=== PATIENT | male | born 1990 ===

== ENCOUNTER 2021-09-03 02:44 | Emergency (ER) | payer SELFPAY ==
[2021-09-03] MEDS ORDERED: ZIPRASIDONE MESYLATE 20 MG VIAL IM PRN (18:29)
--- NOTE | 2021-09-03 19:32 | Emergency Department Report ---
ED Psych HPI - General Chief Complaint: Medical Clearance Stated Complaint: MEDICAL CLEARANCE/DRUG REHAB Time Seen by Provider: 09/03/21 18:29 Source: patient Mode of arrival: Ambulatory - History of Present Illness Initial Comments: Patient is a 31-year-old male presenting to ED with request for rehabilitation placement. States he uses heroin, Xanax and methamphetamine. Denies any HI or SI. No hallucinations. - Related Data Allergies Allergy/AdvReac Type Severity Reaction Status Date / Time No Known Allergies Allergy Verified 09/03/21 04:04 ED Review of Systems ROS: Stated complaint: MEDICAL CLEARANCE/DRUG REHAB Other details as noted in HPI Constitutional: denies: chills, fever Respiratory: denies: cough, shortness of breath, wheezing Cardiovascular: denies: chest pain, palpitations Gastrointestinal: denies: abdominal pain, nausea, diarrhea Genitourinary: denies: urgency, dysuria Musculoskeletal: denies: back pain, joint swelling, arthralgia Skin: denies: rash, lesions Neurological: other (Reports restless legs) Psychiatric: denies: anxiety, depression ED Past Medical Hx - Past Medical History Previous Medical History?: No - Surgical History Past Surgical History?: No - Social History Smoking Status: Never Smoker Substance Use Type: None ED Physical Exam - General Limitations: No Limitations General appearance: alert, in no apparent distress - Head Head exam: Present: atraumatic, normocephalic - Neck Neck exam: Present: normal inspection - Respiratory Respiratory exam: Present: normal lung sounds bilaterally. Absent: respiratory distress - Cardiovascular Cardiovascular Exam: Present: regular rate, normal rhythm. Absent: systolic murmur, diastolic murmur, rubs, gallop - GI/Abdominal GI/Abdominal exam: Present: soft, normal bowel sounds - Rectal Rectal exam: Present: deferred - Extremities Exam Extremities exam: Present: normal inspection - Back Exam Back exam: Present: normal inspection - Neurological Exam Neurological exam: Present: alert, oriented X3 - Psychiatric Psychiatric exam: Present: normal affect, normal mood - Skin Skin exam: Present: warm, dry, intact, normal color. Absent: rash ED Course Vital Signs 09/03/21 09/03/21 04:02 20:15 Temperature 98.3 F 98.4 F Pulse Rate 112 H 97 H Respiratory 18 18 Rate Blood Pressure 129/86 138/89 [Left] O2 Sat by Pulse 100 100 Oximetry ED Medical Decision Making - Lab Data Result diagrams: 09/03/21 19:08 09/03/21 19:08 - Medical Decision Making Labs grossly unremarkable. Patient medically cleared. Awaiting mental health assessment. Critical care attestation.: If time is entered above; I have spent that time in minutes in the direct care of this critically ill patient, excluding procedure time. ED Disposition Clinical Impression: Encounter for drug rehabilitation Disposition: 30 STILL A PATIENT Is pt being admited?: No Condition: Stable
[2021-09-03 19:46] LABS: Hematocrit 41.4 % (35.5-45.6); Hemoglobin 13.5 gm/dl (11.8-15.2); Mean Corpuscular HGB Conc 33 % (32-34); Mean Corpuscular Volume 87 fl (84-94); Platelet Count 390 K/mm3 (140-440); Red Blood Count 4.77 M/mm3 (3.65-5.03)
[2021-09-03 19:51] LABS: Lymphocytes % (Auto) 27.5 % (13.4-35.0); Mean Platelet Volume 8.2 fl (6-12)
[2021-09-03 19:52] LABS: Basophils # (Auto) 0.1 K/mm3 (0.0-0.1); Basophils % (Auto) 0.8 % (0.0-1.8); Eosinophils % (Auto) 0.1 % (0.0-4.3); Lymphocytes # (Auto) 2.7 K/mm3 (1.2-5.4); Monocytes # (Auto) 0.8 K/mm3 (0.0-0.8); Monocytes % (Auto) 8.5 % (0.0-7.3)
[2021-09-03 19:53] LABS: BUN/Creatinine Ratio 10; Blood Urea Nitrogen 9 mg/dL (9-20); Calcium 9.2 mg/dL (8.4-10.2); Hemolysis Index 33
[2021-09-03 20:54] LABS: Bilirubin,Urine NEG (Negative); Blood,Urine NEG (Negative); Color,Urine Yellow (Yellow); Mucus,Urine 2+ /HPF; Urobilinogen,Urine < 2.0 mg/dL (<2.0)
[2021-09-03 21:00] LABS: Amphetamine Screen,Urine PRESUMPTIVE POSITIVE; Benzodiazepines Screen,Urine PRESUMPTIVE POSITIVE; Cannabinoid Screen,Urine PRESUMPTIVE POSITIVE; Cocaine Screen,Urine PRESUMPTIVE POSITIVE; Methadone Screen,Urine PRESUMPTIVE NEGATIVE; Opiate Screen,Urine PRESUMPTIVE NEGATIVE
--- NOTE | 2021-09-04 09:36 | Consultation ---
History of Present Illness - Reason for Consult Consult date: 09/04/21 Reason for consult: mental health evaluation - History of Present Psychiatric Illness The patient is a 31 year old male with history of Polysubstance abuse disorder. In my encounter with the patient, he is calm, alert and oriented x3. he reports daily use of Meth, Heroine, Xanax, and alcohol; states he spends about $300 or more weekly. He reports been at multiple rehab facilities, with longest sobriety as 3 months. The patient denies any current suicidal /homicidal ideation and denies hallucinations. PAST PSYCHIATRIC HISTORY Diagnoses: Polysubstance abuse Suicide attempts or Self-harm behavior: No Prior psychiatric hospitalizations: Yes Substance Abuse history: Meth, Heroine, Xanax, alcohol Previous psychiatric medications tried: Unable to recall Outpatient treatment: Denies PAST MEDICAL HISTORY: None reported Family Psychiatric History: None reported or documented SOCIAL HISTORY Marital Status: Single Living Arrangements: with a friend Employment Status: Unemployed Access to guns/weapons: None report Education: High school History of Abuse: Denies Legal History: None reported REVIEW OF SYSTEMS Constitutional: Negative for weight loss ENT: Negative for stridor Respiratory: Negative for cough or hemoptysis All other systems reviewed and are negative MENTAL STATUS EXAMINATION General Appearance and Behavior: Age appropriate, good hygiene, wearing appropriate clothes, calm and cooperative Cooperation: cooperative Psychomotor Behavior: Psychomotor normal Mood: calm Affect and affective range: congruent with stated mood Thought Process: goal directed Thought Content:reality oriented Speech: Normal rate, volume and rhythm Suicidal Ideation: Denies Homicidal Ideation: Denies Hallucinations: Denies Delusions: None elicited Impulse Control: Impaired Insight and Judgment: Limited insight and judgment Memory: Limited Attention: Limited Orientation: Alert, oriented Assessment and Plan (1)Polysubstance abuse disorder TREATMENT PLAN Sitter: per primary Medical: per primary Disposition: Recommend acute psychiatric inpatient treatment. [facility] will p rovide patient with psychiatric outpatient resources. Will sign off. Thanks Medications and Allergies Allergies Allergy/AdvReac Type Severity Reaction Status Date / Time No Known Allergies Allergy Verified 09/03/21 04:04 Active Meds: Active Medications Ziprasidone (Ziprasidone Mesylate 20 Mg Vial) 10 mg IM Q2H PRN PRN Reason: Agitation Last Admin: 09/03/21 18:43 Dose: 10 mg Mental Status Exam - Vital signs Last Vital Signs Temp 99.1 F 09/04/21 02:05 Pulse 86 09/04/21 02:05 Resp 16 09/04/21 02:05 BP 121/81 09/04/21 02:05 Pulse Ox 98 09/04/21 02:05 Results Result Diagrams: 09/03/21 19:08 09/03/21 19:08 Abnormal lab results 09/03/21 09/03/21 09/03/21 Range/Units 19:08 19:08 19:08 [place]ster % (Auto) 8.5 H (0.0-7.3) % Potassium 3.3 L (3.6-5.0) mmol/L Carbon Dioxide 19 L (22-30) mmol/L Urine WBC (Auto) (0.0-6.0) /HPF Acetaminophen 8.6 L (10.0-30.0) ug/mL 09/03/21 Range/Units 20:17 Brewster % (Auto) (0.0-7.3) % Potassium (3.6-5.0) mmol/L Carbon Dioxide (22-30) mmol/L Urine WBC (Auto) 8.0 H (0.0-6.0) /HPF Acetaminophen (10.0-30.0) ug/mL All other labs normal.
--- NOTE | 2021-09-04 11:30 | Event Note ---
Date: 09/04/21 vss , no events overnight , assessed by psych , awaiting transfer to psych facility
[2021-09-04] MEDS ORDERED: KETOROLAC 60 MG/2 ML INJ IM ONE (13:25)
[2021-09-04 16:12] VITALS: BP 141/68
== END 2021-09-04 16:12 | disposition home or self-care (01) ==
LOC: ED 02:44
DX: Z71.51 Drug abuse counseling and surveillance of drug abuser (principal); Z79.899 Other long term (current) drug therapy
CPT/HCPCS: 36415; 80048; 80307; 81001; 85025; 96372; 99284; J1885; J3486; 80320; G0480